=== PATIENT | male | born 1985 | race Caucasian/White ===

== ENCOUNTER 2017-09-05 18:24 | Emergency (ER) | payer OTHER ==
[~2017-09-05] VITALS: Ht 188 cm; Wt 139.2 kg
[~2017-09-05 18:24] MED LIST: ONDA4TAB10 SL; OXYC1TAB3 PO
[2017-09-05 18:27] VITALS: TEMP 36.6; Ht 188 cm; Wt 139.2 kg
--- NOTE | 2017-09-05 19:27 | DIAGNOSTIC IMAGING REPORT ---
L TOE(S) MIN 2 VIEWS CLINICAL HISTORY: Interval development of pus draining from toe. COMPARISON: Left foot radiograph August 22, 2017. FINDINGS: Soft tissue swelling of the left first toe is noted. Note is made of a minimally distracted avulsion fracture of the lateral base of the distal phalanx of the left first toe. Note is made of cortical irregularity along the distal aspect of the fracture line. Minimal callus formation is noted. Appearance is similar to exam of August 22, 2017. IMPRESSION: 1. No change in alignment of the minimally distracted fracture of the lateral base of the distal phalanx of the left first toe. 2. Soft tissue swelling of the left first toe. Cortical irregularity along the distal aspect of the fracture line. This is likely related to fracture healing although osteomyelitis could have a similar imaging appearance. Electronically signed by: Ricardo Chavez M.D. 09/05/2017 7:26 PM Dictated Date/Time: 09/05/2017 7:22 PM
--- NOTE | 2017-09-05 19:30 | EMERGENCY ROOM VISIT NOTE ---
ED Visit Note First contact with patient: 18:36 CHIEF COMPLAINT: Suture removal This patient returns to the ED today for removal of sutures that were placed 14- 15 days ago. He states that since that time he had acute gastroenteritis as well as an upper URI. He states that there has been some drainage from the wound but notes this is improving. The redness has significantly improved. There is no more pain. Range of motion is improving. There has been no fevers , chills or vomiting recently. REVIEW OF SYSTEMS: Head: No headache, injury or neck pain. Skin: No rash, new lesions, or masses. General: No fever or chills, fatigue, loss of appetite , or significant recent weight gain or loss. PMH: The patient is healthy; there is no significant medical or surgical history. SOCIAL HISTORY: Patient lives at home. PHYSICAL EXAM: Vital Signs: Reviewed Nurse's notes. He is afebrile. There is a sutured wound on the left great toe with minimal erythema. No drainage appreciated on initial exam. There is no lymphangitic streaking. IMAGING: L TOE(S) MIN 2 VIEWS CLINICAL HISTORY: Interval development of pus draining from toe. COMPARISON: Left foot radiograph August 22, 2017. FINDINGS: Soft tissue swelling of the left first toe is noted. Note is made of a minimally distracted avulsion fracture of the lateral base of the distal phalanx of the left first toe. Note is made of cortical irregularity along the distal aspect of the fracture line. Minimal callus formation is noted. Appearance is similar to exam of August 22, 2017. IMPRESSION: 1. No change in alignment of the minimally distracted fracture of the lateral base of the distal phalanx of the left first toe. 2. Soft tissue swelling of the left first toe. Cortical irregularity along the distal aspect of the fracture line. This is likely related to fracture healing although osteomyelitis could have a similar imaging appearance. Electronically signed by: Ricardo Chavez M.D. 09/05/2017 7:26 PM Dictated Date/Time: 09/05/2017 7:22 PM EMERGENCY DEPARTMENT COURSE: The sutures were removed without any difficulty and there was no separation of the wound edges. There was a minimal amount of drainage which was cultured. X-ray was obtained. I believe that the cortical irregularity is likely healing wound. The patient has improved range of motion , decreased pain, and decreased redness. If there was osteomyelitis I would expect some other clinical finding to be evident. In the event that there is underlying infection I will initiate Keflex and Bactrim. Case was discussed with the attending physician. Patient was informed that if his symptoms worsen he is to return as he could develop osteomyelitis. He is to be nonweightbearing. Region was cleansed and dressed with a bandage. He was educated upon management, educated upon worrisome symptoms which to return, had questions answered prior to discharge, and was discharged home in good condition. Babs rapid the previous note and he was to follow with the approval Work[employer] approved individual for orthopedics. He did not do so. I encouraged him to call the employer to arrange this follow-up and if they do not have improved individual and he is to follow with the surgeon recommended on -call osiris Monroy. In the evaluation and treatment of this patient the following differential diagnoses were entertained: Infection, healing wound, among others. Current/Historical Medications Scheduled Cephalexin Monohydrate (Keflex), 500 MG PO QID Sulfa/Trimethoprim (Bactrim Ds 800MG/160MG), 1 TAB PO BID Allergies Coded Allergies: No Known Allergies (Unverified , 09/05/17) Vital Signs Date Time Temp Pulse Resp B/P (MAP) Pulse Ox O2 Delivery O2 Flow Rate FiO2 09/05/17 19:59 74 20 131/85 96 Room Air 09/05/17 18:27 36.6 81 18 159/101 97 Room Air Medications Administered Medications (Trade) Dose Ordered Sig/Alexander Route Start Time Stop Time Status Last Admin Dose Admin Trimethoprim/ Sulfamethoxazole (Sulfameth/ Trimeth Ds 800/ 160MG Home Pack) 1 homepack UD STAT PO 09/05/17 19:47 09/05/17 19:48 DC 09/05/17 19:59 1 HOMEPACK Cephalexin Monohydrate (Keflex 500MG Home Pack) 1 homepack NOW STAT PO 09/05/17 19:47 09/05/17 19:48 DC 09/05/17 19:59 1 HOMEPACK Departure Information Impression Primary Impression: Visit for suture removal Additional Impression: Toe infection Dispostion Home / Self-Care Condition GOOD Prescriptions Sulfa/Trimethoprim (Bactrim Ds 800MG/160MG) Tab 1 TAB PO BID for 9 Days, #18 TAB Prov: BamSantosh marroquin PA-C 09/05/17 Cephalexin Monohydrate (Keflex) 500 Mg Cap 500 MG PO QID for 9 Days, #36 CAP Prov: Santosh Smith PA-C 09/05/17 Referrals [facility] (PCP) Jose Alejandro Monroy M.D. Patient Instructions My [facility] Additional Instructions You have been treated in the Emergency Department for a toe infection and suture removal. Keflex 500mg every 6hrs for 10 days Bactrim one tablet every 12 hours for 10 days For pain control, you can use the following pdht-ezy-nwahnve medicines (if >12 yo): - Regular strength (325mg/tab) Tylenol (acetaminophen) 2 tabs every 4-6 hours as needed. Do not exceed 12 tablets in a 24 hour period. Avoid taking more than 3 grams (3000 mg) of Tylenol per day. This includes any other sources of acetaminophen you may take on a regular basis. - Regular strength (200 mg/tab) Advil (ibuprofen) 1-2 tabs every 4-6 hours as needed. Do not exceed a dose of 3200 mg per day. If this is a recent injury (<24 hrs), ice can be applied to the area of pain for the first 3 days to help decrease pain and inflammation. You have been provided the number for an Orthopaedic Surgeon. You should call this number as soon as possible to establish a follow-up visit from today's Emergency Department visit. As we discussed there is a small infection on the toe. I do not believe that there is osteomyelitis but certainly would like to follow up with the approval Workmen[employer] orthopedic surgeon or if they do not have one the ones I have listed here, Dr. Monroy. Please call them first thing Friday morning to arrange follow-up for back here if worsening symptoms as we discussed. Thank you for your time. Keep the foot in place until cleared by Orthopedics. Use the crutches you have to keep wt off of foot. Return to the Emergency Department if your current symptoms worsen despite treatment course outlined above, or if you develop any of the following symptoms : intractable pain despite aforementioned treatment course or new onset of numbness or tingling of the foot. Problem Qualifiers
[2017-09-05] MEDS ORDERED: SEPTRA DS HOME PACK 1 EA VIAL PO STA (19:47)
[2017-09-05] MEDS ORDERED: CEPHALEXIN 500MG HOME PACK 1 EA BTL PO STA (19:47)
[2017-09-05] MEDS ORDERED: SULF800T23 PO (19:53)
[2017-09-05] MEDS ORDERED: CEPH500C PO (19:53)
[2017-09-05 19:59] VITALS: BP 131/85; PULSE 74; O2SAT 96
== END 2017-09-05 20:04 | disposition home or self-care (01) ==
LOC: C.EDB 18:26 → C.EDD 20:04
DX: Z48.02 Encounter for removal of sutures (principal); L08.9 Local infection of the skin and subcutaneous tissue, unspecified

== ENCOUNTER 2018-01-10 20:56 | Emergency (ER) | payer OTHER ==
[~2018-01-10] VITALS: Ht 188 cm; Wt 131.6 kg
[2018-01-10 21:05] VITALS: TEMP 36.8; Ht 188 cm; Wt 131.6 kg
[2018-01-10] MEDS ORDERED: SODIUM CHLORIDE 0.9% 1000ML 1,000 ML IV STA (21:46)
[2018-01-10] MEDS ORDERED: FLUT0.15 (22:01)
[2018-01-10] MEDS ORDERED: GUAI1TAB75 PO (22:01)
[2018-01-10] MEDS ORDERED: ACET-1693 PO (22:01)
[2018-01-10 22:03] LABS: BASO % 0.3 %; BASO ABS # 0.03 K/uL (0-0.2); BLOOD UREA NITROGEN 17 mg/dl (7-18); CREATININE 1.12 mg/dl (0.60-1.40); EOS % 0.9 %; EOS ABS # 0.08 K/uL (0-0.5); GLUCOSE 153 mg/dl (70-99); HEMATOCRIT 40.2 % (42-52); HEMOGLOBIN 13.8 g/dL (14.0-18.0); IG# 0.02 K/uL (0.00-0.02); LYMPH % 24.5 %; LYMPH ABS # 2.24 K/uL (1.2-3.4); MEAN CELL VOLUME 85.7 fL (80-100); MEAN CORPUSCULAR HEMOGLOBIN 29.4 pg (25-34); MEAN CORPUSCULAR HGB CONC 34.3 g/dl (32-36); MEAN PLATELET VOLUME 10.4 fL (7.4-10.4); MONO % 5.9 %; MONO ABS # 0.54 K/uL (0.11-0.59); NEUT % 68.2 %; NEUT ABS # 6.25 K/uL (1.4-6.5); PLATELET COUNT 289 K/uL (130-400); RED CELL DISTRIBUTION WIDTH CV 13.1 % (11.5-14.5); RED CELL DISTRIBUTION WIDTH SD 40.6 fL (36.4-46.3); WHITE BLOOD COUNT 9.16 K/uL (4.8-10.8)
[2018-01-10 22:04] LABS: ALBUMIN 3.9 gm/dl (3.4-5.0); ALT/SGPT 35 U/L (12-78); CALCIUM 8.5 mg/dl (8.5-10.1); CARBON DIOXIDE 28 mmol/L (21-32); POTASSIUM 3.7 mmol/L (3.5-5.1); SODIUM 138 mmol/L (136-145)
[2018-01-10 22:08] LABS: ALKALINE PHOSPHATASE 124 U/L (45-117); AST/SGOT 24 U/L (15-37); TOTAL PROTEIN 7.9 gm/dl (6.4-8.2)
--- NOTE | 2018-01-10 22:20 | DIAGNOSTIC IMAGING REPORT ---
HEAD WITHOUT CONTRAST (CT) CT DOSE: 724.83 mGy.cm HISTORY: Headache right eye pressure/headache, syncope TECHNIQUE: Multiaxial CT images of the head were performed without the use of intravenous contrast. A dose lowering technique was utilized adhering to the principles of ALARA. Comparison: None. Findings: Opacified left maxillary sinus as well as ethmoid sinuses bilaterally. Opacified right sphenoid sinus. The calvarium and skull base are intact. The ventricles and sulci are within normal limits. There is no mass, hematoma, midline shift, or acute infarct. Impression: No acute intracranial abnormality. Diffuse chronic sinus change. The above report was generated using voice recognition software. It may contain grammatical, syntax or spelling errors. Electronically signed by: Frederick Tinoco M.D. 01/10/2018 10:18 PM Dictated Date/Time: 01/10/2018 10:18 PM
--- NOTE | 2018-01-10 22:23 | DIAGNOSTIC IMAGING REPORT ---
CHEST ONE VIEW PORTABLE CLINICAL HISTORY: cough dyspnea COMPARISON STUDY: 08/25/2017 FINDINGS: Small right suprahilar and right perihilar parenchymal infiltrate. Lungs otherwise appear clear. Diaphragms are smooth. IMPRESSION: Small right suprahilar and perihilar infiltrate. The above report was generated using voice recognition software. It may contain grammatical, syntax or spelling errors. Electronically signed by: Frederick Tinoco M.D. 01/10/2018 10:22 PM Dictated Date/Time: 01/10/2018 10:21 PM
[2018-01-10] MEDS ORDERED: AZIT250T PO (23:10)
--- NOTE | 2018-01-10 23:13 | EMERGENCY ROOM VISIT NOTE ---
History First contact with patient: 21:29 Chief Complaint: SYNCOPE (NEAR SYNCOPE) Stated Complaint: SYNCOPE Nursing Triage Summary: pt remembers warm flushed sensation with shortness of breath, woke up on floor. ems states he was lowered to the ground by coworker. pt complains of right eye pressure History of Present Illness The patient is a 32 year old male who presents to the Emergency Room with complaints of a near syncopal episode. 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 He felt like he was breathing heavily and states that his hearing started to go and things became blurry and he felt like he was going to pass out. One of his coworkers helped him to the ground. The patient states that he does not believe he lost consciousness at any time. The patient states the symptoms lasted a few minutes. He was given water by his manager dish and then sewing machine bobbin winder arrived. He states that at this time, he is slightly thirsty and feels "blah," but denies any significant complaints. He does state that he has been ill for the past 3 weeks. He was diagnosed with influenza by his PCP and treated with Tamiflu, however had persistent symptoms afterward. He has had a persistent cough as well as sinus congestion and nasal discharge. He has been taking Tylenol, Flonase and a decongestant. He states there is pressure in the middle of his sinuses and did discomfort in his right eye. The patient denies any history of cardiac problems. He does state he has been eating normally but has not been drinking as much as he should. Review of Systems A complete 10 point review of systems was reviewed with the patient with pertinent positives and negatives as per history of present illness. All else were negative. Past Medical/Surgical History Medical Problems: (1) Chronic knee pain Surgical Problems: (1) No history of previous surgery Family History FH: hypertension Social History Smoking Status: Never Smoker Drug Use: none Marital Status: Housing Status: lives with family Occupation Status: employed Current/Historical Medications Scheduled Azithromycin (Zithromax), 250 MG PO DAILY Fluticasone Propionate (Nasal) (Flonase Allergy Relief), 1 SPRAY NA DAILY Scheduled PRN Acetaminophen Tab (Tylenol), 650 MG PO Q4H PRN for Pain or Fever Guaifenesin La (Guaifenesin Er), 600 MG PO Q12H PRN for CONGESTION Physical Exam Vital Signs Date Time Temp Pulse Resp B/P (MAP) Pulse Ox O2 Delivery O2 Flow Rate FiO2 01/10/18 23:31 95 18 143/86 98 01/10/18 21:11 103 01/10/18 21:05 36.8 100 20 121/77 97 Room Air 127/83 142/89 Physical Exam VITALS: Vitals are noted on the nurse's note and reviewed by myself. Vital signs stable. GENERAL: This is a 32-year-old male, in no acute distress, nondiaphoretic, well- developed well-nourished. SKIN: The skin was without rashes. HEAD: Normocephalic atraumatic. EARS: External auditory canals clear, tympanic membranes pearly zarate without erythema or effusion bilaterally. EYES: Pupils equal round and reactive to light and accommodation. Extraocular movements intact. NOSE: No sinus tenderness. MOUTH: Mucous membranes moist. Tonsils are not enlarged. Pharynx without erythema or exudate. NECK: Supple without nuchal rigidity. No lymphadenopathy. HEART: Regular rate and rhythm without murmurs gallops or rubs. LUNGS: Clear to auscultation bilaterally without wheezes, rales or rhonchi. No retractions or accessory muscle use. MUSCULOSKELETAL: Strength 5/5 throughout. NEURO: Patient was alert and oriented to person place and time. No focal neurological deficits. Medical Decision & Procedures ER Provider Diagnostic Interpretation: CHEST ONE VIEW PORTABLE FINDINGS: Small right suprahilar and right perihilar parenchymal infiltrate. Lungs otherwise appear clear. Diaphragms are smooth. IMPRESSION: Small right suprahilar and perihilar infiltrate. HEAD WITHOUT CONTRAST (CT) Findings: Opacified left maxillary sinus as well as ethmoid sinuses bilaterally. Opacified right sphenoid sinus. The calvarium and skull base are intact. The ventricles and sulci are within normal limits. There is no mass, hematoma, midline shift, or acute infarct. Impression: No acute intracranial abnormality. Diffuse chronic sinus change. Laboratory Results 01/10/18 21:18 Red Blood Count 4.69, Mean Corpuscular Volume 85.7, Mean Corpuscular Hemoglobin 29.4, Mean Corpuscular Hemoglobin Concent 34.3, Mean Platelet Volume 10.4, Neutrophils (%) (Auto) 68.2, Lymphocytes (%) (Auto) 24.5, Monocytes (%) (Auto) 5.9, Eosinophils (%) (Auto) 0.9, Basophils (%) (Auto) 0.3, Neutrophils # (Auto) 6.25, Lymphocytes # (Auto) 2.24, Monocytes # (Auto) 0.54, Eosinophils # (Auto) 0.08, Basophils # (Auto) 0.03 01/10/18 21:18 Test 01/10/18 21:18 White Blood Count 9.16 K/uL (4.8-10.8) Red Blood Count 4.69 M/uL (4.7-6.1) Hemoglobin 13.8 g/dL (14.0-18.0) Hematocrit 40.2 % (42-52) Mean Corpuscular Volume 85.7 fL (80-100) Mean Corpuscular Hemoglobin 29.4 pg (25-34) Mean Corpuscular Hemoglobin Concent 34.3 g/dl (32-36) Platelet Count 289 K/uL (130-400) Mean Platelet Volume 10.4 fL (7.4-10.4) Neutrophils (%) (Auto) 68.2 % Lymphocytes (%) (Auto) 24.5 % Monocytes (%) (Auto) 5.9 % Eosinophils (%) (Auto) 0.9 % Basophils (%) (Auto) 0.3 % Neutrophils # (Auto) 6.25 K/uL (1.4-6.5) Lymphocytes # (Auto) 2.24 K/uL (1.2-3.4) Monocytes # (Auto) 0.54 K/uL (0.11-0.59) Eosinophils # (Auto) 0.08 K/uL (0-0.5) Basophils # (Auto) 0.03 K/uL (0-0.2) RDW Standard Deviation 40.6 fL (36.4-46.3) RDW Coefficient of Variation 13.1 % (11.5-14.5) Immature Granulocyte % (Auto) 0.2 % Immature Granulocyte # (Auto) 0.02 K/uL (0.00-0.02) Anion Gap 6.0 mmol/L (3-11) Est Creatinine Clear Calc Drug Dose 135.3 ml/min Estimated GFR () 99.5 Estimated GFR (Non- 85.8 BUN/Creatinine Ratio 14.7 (10-20) Calcium Level 8.5 mg/dl (8.5-10.1) Total Bilirubin 0.4 mg/dl (0.2-1) Aspartate Amino Transf (AST/SGOT) 24 U/L (15-37) Alanine Aminotransferase (ALT/SGPT) 35 U/L (12-78) Alkaline Phosphatase 124 U/L (45-117) Troponin I < 0.015 ng/ml (0-0.045) Total Protein 7.9 gm/dl (6.4-8.2) Albumin 3.9 gm/dl (3.4-5.0) Globulin 4.0 gm/dl (2.5-4.0) Albumin/Globulin Ratio 1.0 (0.9-2) Medications Administered Medications (Trade) Dose Ordered Sig/Alexander Route Start Time Stop Time Status Last Admin Dose Admin Sodium Chloride 1,000 ml @ 999 mls/hr Q1H1M STAT IV 01/10/18 21:46 01/10/18 22:46 DC 01/10/18 21:54 999 MLS/HR Azithromycin (Zithromax Tab) 500 mg NOW ONCE PO 01/10/18 23:15 01/10/18 23:16 DC 01/10/18 23:24 500 MG ECG Per My Interpretation Indication: syncope Rate (beats per minute): 99 Rhythm: normal sinus Findings: no acute ischemic change, no ectopy, other (incomplete RBBB) Change: no significant change Medical Decision Differential diagnosis includes cardiac arrhythmia, dehydration, pneumonia, electrolyte abnormality, among others. The patient is a 32-year-old male who presents today complaining of a near syncopal episode. Labs revealed no leukocytosis or concerning anemia. Troponin was not elevated. EKG was interpreted by myself and shows an incomplete right bundle branch block with no ischemic findings, unchanged from a previous. Chest x-ray does show evidence of a right perihilar and suprahilar infiltrate. Patient has had persistent cough and flulike symptoms. He will be placed on an antibiotic and was instructed to follow-up with his primary care provider for a recheck. He was advised to stay well-hydrated and return here for any episodes of recurrent symptoms. The patient's case was reviewed with Dr. Grier, ED attending physician, who agreed with my assessment and treatment plan. Based on the patient's presentation and work up, I feel the patient is stable for outpatient treatment. The patient was educated to return to the emergency department for any worsening of their current condition or new/concerning symptoms. He will follow up with his PCP. Medication Reconcilliation Current Medication List: was personally reviewed by me Blood Pressure Screening Patient's blood pressure: Elevated blood pressure Blood pressure disposition: Elevated BP felt to be situational Impression Primary Impression: Pneumonia Additional Impression: Near syncope Departure Information Dispostion Home / Self-Care Condition GOOD Prescriptions Azithromycin (Zithromax) 250 Mg Tab 250 MG PO DAILY, #4 TAB Prov: Ladi Ruano .MARGARETH 01/10/18 Referrals [facility] (PCP) Patient Instructions My [facility] Additional Instructions You were prescribed Zithromax to be taken daily for 4 days to complete your 5 day course. This is an antibiotic. All antibiotics have the potential to cause diarrhea. Stop this medication and contact a medical provider if you were to develop any significant adverse side effects including: wheezing, shortness of breath, passing out, vomiting, or a diffuse rash. Always take antibiotics as directed and COMPLETE the ENTIRE course regardless of the improvement of your symptoms. For pain control, you can use the following dicw-lyw-ldtyhyc medicines (if >12 yo): - Regular strength (325mg/tab) Tylenol (acetaminophen) 2 tabs every 4-6 hours as needed. Do not exceed 12 tablets in a 24 hour period. Avoid taking more than 4 grams (4000 mg) of Tylenol per day. This includes any other sources of acetaminophen you may take on a regular basis. - Regular strength (200 mg/tab) Advil (ibuprofen) 1-2 tabs every 4-6 hours as needed. Do not exceed a dose of 3200 mg per day. Make sure to rest and drink plenty of fluids. Follow-up with your primary care provider on Friday or Friday for recheck. Return to the emergency department with worsening symptoms, shortness of breath , any further episodes of feeling like you are going to pass out, high fevers or other new/concerning symptoms. Problem Qualifiers
[2018-01-10] MEDS ORDERED: AZITHROMYCIN 250 MG TAB PO ONE (23:15)
[2018-01-10 23:31] VITALS: BP 143/86; PULSE 95; O2SAT 98
== END 2018-01-10 23:35 | disposition home or self-care (01) ==
LOC: EDBD 20:56 → C.EDC 20:57
DX: J18.9 Pneumonia, unspecified organism (principal); R55 Syncope and collapse